=== PATIENT | male | born 1965 | race Caucasian/White ===

== ENCOUNTER → 2019-12-13 | Outpatient (CLI) | payer BC, OTHER ==
--- NOTE | 2019-12-13 22:55 | MR ---
EXAMINATION TYPE: MR cervical spine wo con DATE OF EXAM: 12/13/2019 COMPARISON: 02/09/2012 HISTORY: Neck pain into [place] upper extremities TECHNIQUE: Multiplanar, multisequence images of the cervical spine were acquired. C2-C3: Facet arthropathy and posterior spondylosis. No Canal stenosis. Mild left foraminal encroachme nt due to hypertrophic changes. Mild bilateral uncovertebral joint hypertrophy. C3-C4: Degenerative disc disease and bilateral uncovertebral joint hypertrophy greater on the right w ith mild right foraminal encroachment. No disc herniation or canal stenosis. Minimal central disc bul ging. C4-C5: Degenerative disc disease with facet arthropathy and uncovertebral joint hypertrophy. Mild rig ht-sided foraminal encroachment no canal stenosis or focal herniation. C5-C6: Severe degenerative disc disease. Broad-based central disc herniation with facet arthropathy a nd uncovertebral joint hypertrophy encroaches upon the anterior margin the spinal cord. This is mildl y progressed from the prior exam. There is significant bilateral foraminal encroachment and canal sapphire nosis C6-C7: Facet arthropathy. No foraminal encroachment, canal stenosis or disc herniation. C7-T1: No evidence for degenerative disc disease. No disc bulge/herniation or protrusion. No Canal stenosis. Foramina are patent bilaterally. Cervical segments are intact. There is normal alignment. Cervical spinal cord is of normal signal. Craniovertebral junction relationships are within normal limits. Posterior to the cerebellum on the T2 sagittal view there is a 3 mm fluid-filled signal which is indeterminate by cervical spine MRI. O nly partially included on the exam. However, is retrospectively stable relative to the prior exam 201 2 and therefore likely benign. IMPRESSION: 1. There is mild progression of a disc herniation C5-C6 relative to the prior exam. Broad based disc herniation encroaches upon the anterior margin of the spinal cord. Hypertrophic changes of the facets and uncovertebral joint contribute to significant bilateral foraminal encroachment and canal stenosi s.
== END | disposition home or self-care (01) ==
LOC: RADMRIMAIN 08:22
PROVIDERS: ATTEND Internal Medicine
DX: M48.02 Spinal stenosis, cervical region (principal); M50.222 Other cervical disc displacement at C5-C6 level
CPT/HCPCS: 72141

== ENCOUNTER 2023-05-10 15:36 | Inpatient (IN) | payer BC, MEDICAID, OTHER ==
--- NOTE | 2023-05-10 16:00 | ED ---
General Adult HPI - General Source: patient, EMS, RN notes reviewed, old records reviewed Mode of arrival: EMS Limitations: no limitations <[place] - Last Filed: 05/10/23 22:57> <Al Noriega - Last Filed: 05/11/23 03:32> - General Chief complaint: Psychiatric Symptoms Stated complaint: Mental Health, Alcohol Time Seen by Provider: 05/10/23 15:39 - History of Present Illness Initial comments: 57-year-old male presents for psychiatric evaluation and alcohol intoxication. Patient is not compliant with history physical exam. Patient had been found by police with a gun in his hand, stating that he wanted to commit suicide. He had a breath alcohol of 260. He was petitioned by local police. ([place]) - Related Data Home Medications Medication Instructions Recorded Confirmed No Known Home Medications 05/10/23 05/10/23 Allergies Allergy/AdvReac Type Severity Reaction Status Date / Time No Known Allergies Allergy Verified 05/10/23 17:10 Review of Systems ROS Other: All systems not noted in ROS Statement are negative. <[place] - Last Filed: 05/10/23 22:57> ROS Other: All systems not noted in ROS Statement are negative. <Al Noriega - Last Filed: 05/11/23 03:32> ROS Statement: Those systems with pertinent positive or pertinent negative responses have been documented in the HPI. Past Medical History Past Medical History: Hypertension History of Any Multi-Drug Resistant Organisms: None Reported Past Surgical History: No Surgical Hx Reported Past Psychological History: Anxiety Smoking Status: Current every day smoker Past Alcohol Use History: Daily, Heavy Past Drug Use History: Marijuana <[place] - Last Filed: 05/10/23 22:57> General Exam Limitations: no limitations General appearance: alert, appears intoxicated Head exam: Present: atraumatic, normocephalic Eye exam: Present: normal appearance, PERRL ENT exam: Present: mucous membranes dry Neck exam: Present: normal inspection. Absent: tenderness Respiratory exam: Absent: respiratory distress, wheezes Cardiovascular Exam: Present: normal rhythm, tachycardia GI/Abdominal exam: Absent: distended Extremities exam: Present: normal inspection, normal capillary refill Neurological exam: Present: alert. Absent: motor sensory deficit Psychiatric exam: Present: agitated, anxious, suicidal ideation Skin exam: Present: warm, dry, intact <[place] - Last Filed: 05/10/23 22:57> Course <[place] - Last Filed: 05/10/23 22:57> Vital Signs 05/10/23 05/10/23 15:39 19:00 Temperature 97.8 F Pulse Rate 130 H 94 Respiratory 20 18 Rate Blood Pressure 160/96 112/78 O2 Sat by Pulse 95 94 L Oximetry - Reevaluation(s) Reevaluation #1: 05/10/23 23[address] patient [address] out Dr. Noriega awaiting sobriety and EPS evaluation ([place]) Procedures - Restraint - Face to Face Restraint Occurrence 1 Patient's Immediate Situation: Endangers self safety, Endangers others' safety, Endangers staff safety Patient's Reaction to the Intervention: Uncooperative, Angry, Hostile, Belligerent Patient's Medical & Behavioral Condition: Alert, Agitated Need to Continue or Terminate Restraint or Seclusion: Continue Face to Face Eval of Restraint Date: 05/10/23 Face to Face Eval of Restraint Time: 16:02 <[place] - Last Filed: 05/10/23 22:57> Medical Decision Making <[place] - Last Filed: 05/10/23 22:57> <Al Noriega - Last Filed: 05/11/23 03:32> - Medical Decision Making Was pt. sent in by a medical professional or institution (, PA, RETORT UNLOADER, urgent care, hospital, or halfway...) When possible be specific @ -[No] Did you speak to anyone other than the patient for history (EMS, parent, family, police, friend...)? What history was obtained from this source @ -[No] Did you review nursing and triage notes (agree or disagree)? Why? @ -[I reviewed and agree with nursing and triage notes] Were old charts reviewed (outside hosp., previous admission, EMS record, old EKG, old radiological studies, urgent care reports/EKG's, halfway records)? Report findings @ -[No old charts were reviewed] Differential Diagnosis (chest pain, altered mental status, abdominal pain women, abdominal pain men, vaginal bleeding, weakness, fever, dyspnea, syncope, headache, dizziness, GI bleed, back pain, seizure, CVA, palpatations, mental health, musculoskeletal)? @ -[Differential Mental Health Depression, anxiety, bipolar, psychosis, schizophrenia, borderline personality, situational depression, adjustment disorder, behavioral disorder, brain tumor, malingering, substance abuse, encephalopathy, medication reaction, dementia, hypothyroidism, degenerative neurologic disorder, lupus.... This is not meant to be all-inclusive list EKG interpreted by me (3pts min.). @ -[As above] X-rays interpreted by me (1pt min.). @ -[None done] CT interpreted by me (1pt min.). @ -[None done] U/S interpreted by me (1pt. min.). @ -[None done] What testing was considered but not performed or refused? (CT, X-rays, U/S, labs)? Why? @ -[None] What meds were considered but not given or refused? Why? @ -[None] Did you discuss the management of the patient with other professionals (professionals i.e. , PA, RETORT UNLOADER, lab, RT, psych nurse, secondary social studies teacher, piece dyer, t eacher, flight communications officer, vocational case manager)? Give summary @ -[No] Was smoking cessation discussed for >3mins.? @ -[No] Was critical care preformed (if so, how long)? @ -[No] Were there social determinants of health that impacted care today? How? (Homelessness, low income, unemployed, alcoholism, drug addiction, transportation, low edu. Level, literacy, decrease access to med. care, retirement, rehab)? @ -[No] Was there de-escalation of care discussed even if they declined (Discuss DNR or withdrawal of care, Hospice)? DNR status @ -[No] What co-morbidities impacted this encounter? (DM, HTN, Smoking, COPD, CAD, Cance r, CVA, ARF, Chemo, Hep., AIDS, mental health diagnosis, sleep apnea, morbid obesity)? @ -[None] Was patient admitted / discharged? Hospital course, mention meds given and route, prescriptions, significant lab abnormalities, going to OR and other pertinent info. @ patient care signed out Dr. Noriega awaiting sobriety and EPS evaluation] ([place]) The patient was signed out to me from Dr. Park pending sobriety for EPS evaluation. The patient remained stable and was clinically sober and EPS evaluated the patient the bedside. EPS did recommend inpatient psychiatric admission for further workup and treatment. The patient was placed on a CIWA scale. A COVID-19 swab was also obtained at this time. I did complete a clinical certificate for the patient and the patient was admitted to the inpatient psychiatric unit in stable condition. (Al Noriega) - Lab Data Lab Results 05/10/23 Range/Units 16:54 Urine Opiates Screen Not Detected (NotDetected) Ur Oxycodone Screen Not Detected (NotDetected) Urine Methadone Screen Not Detected (NotDetected) Ur Propoxyphene Screen Not Detected (NotDetected) Ur Barbiturates Screen Not Detected (NotDetected) U Tricyclic Antidepress Not Detected (NotDetected) Ur Phencyclidine Scrn Not Detected (NotDetected) Ur Amphetamines Screen Not Detected (NotDetected) U Methamphetamines Scrn Not Detected (NotDetected) U Benzodiazepines Scrn Not Detected (NotDetected) Urine Cocaine Screen Not Detected (NotDetected) U Marijuana (THC) Screen Detected H (NotDetected) Disposition <[place] - Last Filed: 05/10/23 22:57> Is patient prescribed a controlled substance at d/c from ED?: No Time of Disposition: 03:00 Decision to Admit Reason: Admit from EC Decision Date: 05/11/23 Decision Time: 03:00 <Al Noriega - Last Filed: 05/11/23 03:32> Clinical Impression: Suicidal ideation Disposition: ADMITTED IP TO THIS [facility] Condition: Stable Referrals: None,Stated [Primary Care Provider] - 1-2 days
[2023-05-10 17:16] LABS: Amphetamine Screen,Urine Not Detected (NotDetected); Barbiturate Screen,Urine Not Detected (NotDetected); Benzodiazepines Screen,Urine Not Detected (NotDetected); Cocaine Screen,Urine Not Detected (NotDetected); Methadone Screen, Urine Not Detected (NotDetected); Opiate Screen,Urine Not Detected (NotDetected); Oxycodone Screen, Urine Not Detected (NotDetected); Phencyclidine Screen,Urine Not Detected (NotDetected); Tricyclic Antidepressant,Urine Not Detected (NotDetected); Urn Cannabinoid Scrn Detected (NotDetected)
[2023-05-10] MEDS ORDERED: LORazepam 2 MG/ML INJ IM STA (17:30)
[2023-05-11] MEDS ORDERED: NICOTINE 21MG/24HR PATCH TRANSDERM STA (00:38)
[2023-05-11] MEDS ORDERED: THIAMINE 100 MG/ML 2 ML VIAL IM STA (03:30)
[2023-05-11] MEDS ORDERED: LORazepam 2 MG/ML INJ IV PRN ×3 (03:30)
[2023-05-11] MEDS ORDERED: ACETAMINOPHEN TAB 325 MG TAB PO PRN (05:00)
[2023-05-11] MEDS ORDERED: MAG HYDROX/AL HYDROX/SIMETH 30 ML CUP PO PRN (05:00)
[2023-05-11] MEDS ORDERED: LORazepam 1 MG TAB PO PRN ×2 (05:00)
[2023-05-11] MEDS ORDERED: MAGNESIUM HYDROXIDE 2,400 MG/10 ML CUP PO PRN (05:00)
[2023-05-11] MEDS ORDERED: hydrOXYzine HCL 25 MG TAB PO PRN (05:00)
[2023-05-11] MEDS ORDERED: OLANZapine 5 MG TAB PO PRN (05:00)
[2023-05-11] MEDS ORDERED: OLANZapine 10 MG VIAL IM PRN (05:00)
[2023-05-11] MEDS ORDERED: hydrOXYzine HCL 50 MG/ML 1 ML VIAL IM PRN (05:00)
[2023-05-11 05:20] LABS: Appearance,Urine Clear (Clear); Bilirubin,Urine Negative (Negative); Blood,Urine Negative (Negative); Color,Urine Light Yellow; Glucose,Urine (UA) Negative (Negative); Ketones,Urine Negative (Negative); Leukocyte Esterase,Urine Negative (Negative); Nitrite,Urine Negative (Negative); PH, Urine 5.5 (5.0-8.0); Protein,Urine Negative (Negative); Specific Gravity,Urine 1.006 (1.001-1.035); Urobilinogen,Urine <2.0 mg/dL (<2.0)
[2023-05-11 06:52] LABS: Basophils % (A) 0 %; Eosinophils # (A) 0.1 k/uL (0-0.7); Eosinophils % (A) 1 %; HCT 54.7 % (39.0-53.0); Lymphocytes # (A) 3.8 k/uL (1.0-4.8); Lymphocytes % (A) 43 %; MCH 29.9 pg (25.0-35.0); MCV 90.8 fL (80.0-100.0); Mean Platelet Volume 7.9; Monocytes # (A) 0.7 k/uL (0-1.0); Monocytes % (A) 8 %; Neutrophils # (A) 3.9 k/uL (1.3-7.7); Neutrophils % (A) 45 %; Platelet Count 277 k/uL (150-450); RBC 6.02 m/uL (4.30-5.90); WBC 8.8 k/uL (3.8-10.6)
[2023-05-11 07:02] LABS: ALT 30 U/L (4-49); AST 35 U/L (17-59); African American GFR (CKD) >90 (>60 ml/min/1.73 sqM); Albumin 4.5 g/dL (3.5-5.0); Alkaline Phosphatase 72 U/L (38-126); Anion Gap 10 mmol/L; Bilirubin, Delta 0.2 mg/dL (0.0-0.2); Bilirubin,Unconjugated 0.2 mg/dL (0.0-1.1); Blood Urea Nitrogen 18 mg/dL (9-20); Calcium 9.3 mg/dL (8.4-10.2); Carbon Dioxide 26 mmol/L (22-30); Chloride 105 mmol/L (98-107); Glucose 96 mg/dL (74-99); Non-African American GFR(CKD) 83 (>60 ml/min/1.73 sqM); Potassium 4.6 mmol/L (3.5-5.1); Sodium 141 mmol/L (137-145); Total Bilirubin 0.4 mg/dL (0.2-1.3); Total Protein 7.6 g/dL (6.3-8.2)
[2023-05-11] MEDS ORDERED: THIAMINE 100 MG TAB PO SCH (09:00)
[2023-05-11] MEDS ORDERED: chlordiazePOXIDE 25 MG CAP PO SCH (09:00)
[2023-05-11] MEDS: NICOTINE 14MG/24HR PATCH TRANSDERM SCH (09:13)
[2023-05-11] MEDS: MULTIVITAMINS, THERA 1 EACH TAB PO SCH (09:13)
[2023-05-11] MEDS: FOLIC ACID 1 MG TAB PO SCH (09:13)
--- NOTE | 2023-05-11 09:32 | P.MDCNMH ---
History of Present Illness H&P Date: 05/11/23 Chief Complaint: medical management 57-year-old man with medical history of alcohol abuse, hypertension presented for mental health evaluation. Patient has no complaints at this time. His blood pressure was slightly high in the emergency room. He does not take any medications at home. He denies fevers, chills, nausea, vomiting, chest pain, palpitations, syncope, presyncope, cough, dyspnea, abdominal pain, constipation, diarrhea, dysuria, dyschezia, numbness/weakness of extremities. Pulmonary evaluation, patient was afebrile, hemodynamically stable. CBC demonstrated a polycythemia at 18. Basic metabolic panel and liver function tests were unremarkable. TSH was 2.76. UA was negative. Urine tox was positive for marijuana. Covid was negative. No imaging to review. All Systems reviewed and pertinent positives and negatives noted in HPI, all other symptoms are negative Gen: in no apparent distress, resting comfortably in bed Eyes: PERRL, no scleral injection or icterus HENT: normocephalic, atraumatic, good hearing acuity, moist mucous membranes Neck: no tracheal deviation, full range of motion Resp: good air exchange, breathing comfortably with no accessory muscle use, no tactile fremitus CVS: good distal perfusion x 4, no pitting edema GI: soft, NTTP, ND, no hepatosplenomegaly : no suprapubic tenderness, no CVAT, raines catheter not present MSK: no clubbing, no cyanosis, no noted contractures of extremities Skin: no noted rashes, petechiae; temperature of skin is appropriate Neuro: moving all extremities without signs of weakness, CN II-XII intact Psych: cooperative, euthymic mood, insight and judgment intact Assessment: Hypertension Marijuana abuse Nicotine dependence Plan: Vital signs reviewed and noted in the HPI Lab work reviewed and noted in the HPI Start 5 mg daily of amlodipine Recommend marijuana cessation Patient is full code Past Medical History Past Medical History: Hypertension History of Any Multi-Drug Resistant Organisms: None Reported Past Surgical History: No Surgical Hx Reported Past Anesthesia/Blood Transfusion Reactions: No Reported Reaction Past Psychological History: Anxiety Smoking Status: Current every day smoker Past Alcohol Use History: Daily, Heavy Past Drug Use History: Marijuana - Past Family History Father Family Medical History: No Reported History Medications and Allergies Home Medications Medication Instructions Recorded Confirmed Type No Known Home Medications 05/10/23 05/11/23 History Allergies Allergy/AdvReac Type Severity Reaction Status Date / Time No Known Allergies Allergy Verified 05/11/23 05:10 Physical Exam Osteopathic Statement: *. No significant issues noted on an osteopathic structural exam other than those noted in the History and Physical/Consult. Vitals: Vital Signs Temp Pulse Pulse Resp BP BP Pulse Ox 05/11/23 06:12 97.8 F 118 H 18 148/102 96 05/11/23 05:30 88 16 110/68 95 05/10/23 19:00 97.8 F 94 18 112/78 94 L 05/10/23 15:39 130 H 20 160/96 95 Intake and Output 05/10/23 05/11/23 05/11/23 22:59 06:59 14:59 Other: Weight 81.647 kg 76.714 kg Cranial Nerve Examination - Cranial Nerves Cranial Nerve II- Optic: Intact Cranial Nerve III- Oculomotor: Intact Cranial Nerve IV- Trochlear: Intact Cranial Nerve V- Trigeminal: Intact Cranial Nerve - Abducens: Intact Cranial Nerve VII- Facial: Intact Cranial Nerve VIII- Auditory: Intact Cranial Nerve IX- Glossopharyngeal: Intact Cranial Nerve X- Vagus: Intact Cranial Nerve XI- Accessory: Intact Cranial Nerve XII- Hypoglossal: Intact Results CBC & Chem 7: 05/11/23 06:19 05/11/23 06:19 Labs: Abnormal Lab Results - Last 24 Hours (Table) 05/10/23 05/11/23 Range/Units 16:54 06:19 RBC 6.02 H (4.30-5.90) m/uL Hgb 18.0 H (13.0-17.5) gm/dL Hct 54.7 H (39.0-53.0) % U Marijuana (THC) Screen Detected H (NotDetected)
[2023-05-11] MEDS ORDERED: NALTREXONE HCL 50 MG TAB PO STA (11:10)
--- NOTE | 2023-05-11 13:23 | P.HP ---
Psychiatric H&P - . H&P Date: 05/11/23 History & Physical: Allergies Allergy/AdvReac Type Severity Reaction Status Date / Time No Known Allergies Allergy Verified 05/11/23 05:10 Vital Signs Temp 97.8 F 05/11/23 06:12 Pulse 118 H 05/11/23 06:12 Resp 18 05/11/23 06:12 BP 148/102 05/11/23 06:12 Pulse Ox 96 05/11/23 06:12 FiO2 Intake & Output 05/10/23 05/11/23 05/11/23 18:59 06:59 18:59 Weight 81.647 kg 76.714 kg Laboratory Last Values WBC 8.8 k/uL (3.8-10.6) 05/11/23 06:19 RBC 6.02 m/uL (4.30-5.90) H 05/11/23 06:19 Hgb 18.0 gm/dL (13.0-17.5) H 05/11/23 06:19 Hct 54.7 % (39.0-53.0) H 05/11/23 06:19 MCV 90.8 fL (80.0-100.0) 05/11/23 06:19 MCH 29.9 pg (25.0-35.0) 05/11/23 06:19 MCHC 33.0 g/dL (31.0-37.0) 05/11/23 06:19 RDW 14.0 % (11.5-15.5) 05/11/23 06:19 Plt Count 277 k/uL (150-450) 05/11/23 06:19 MPV 7.9 05/11/23 06:19 Neutrophils % 45 % 05/11/23 06:19 Lymphocytes % 43 % 05/11/23 06:19 Monocytes % 8 % 05/11/23 06:19 Eosinophils % 1 % 05/11/23 06:19 Basophils % 0 % 05/11/23 06:19 Neutrophils # 3.9 k/uL (1.3-7.7) 05/11/23 06:19 Lymphocytes # 3.8 k/uL (1.0-4.8) 05/11/23 06:19 Monocytes # 0.7 k/uL (0-1.0) 05/11/23 06:19 Eosinophils # 0.1 k/uL (0-0.7) 05/11/23 06:19 Basophils # 0.0 k/uL (0-0.2) 05/11/23 06:19 Sodium 141 mmol/L (137-145) 05/11/23 06:19 Potassium 4.6 mmol/L (3.5-5.1) 05/11/23 06:19 Chloride 105 mmol/L (98-107) 05/11/23 06:19 Carbon Dioxide 26 mmol/L (22-30) 05/11/23 06:19 Anion Gap 10 mmol/L 05/11/23 06:19 BUN 18 mg/dL (9-20) 05/11/23 06:19 Creatinine 1.02 mg/dL (0.66-1.25) 05/11/23 06:19 Est GFR (CKD-EPI)AfAm >90 (>60 ml/min/1.73 sqM) 05/11/23 06:19 Est GFR (CKD-EPI)NonAf 83 (>60 ml/min/1.73 sqM) 05/11/23 06:19 Glucose 96 mg/dL (74-99) 05/11/23 06:19 Calcium 9.3 mg/dL (8.4-10.2) 05/11/23 06:19 Total Bilirubin 0.4 mg/dL (0.2-1.3) 05/11/23 06:19 Conjugated Bilirubin 0.0 mg/dL (0.0-0.3) 05/11/23 06:19 Unconjugated Bilirubin 0.2 mg/dL (0.0-1.1) 05/11/23 06:19 Delta Bilirubin 0.2 mg/dL (0.0-0.2) 05/11/23 06:19 AST 35 U/L (17-59) 05/11/23 06:19 ALT 30 U/L (4-49) 05/11/23 06:19 Alkaline Phosphatase 72 U/L (38-126) 05/11/23 06:19 Total Protein 7.6 g/dL (6.3-8.2) 05/11/23 06:19 Albumin 4.5 g/dL (3.5-5.0) 05/11/23 06:19 TSH 2.760 mIU/L (0.465-4.680) 05/11/23 06:19 Urine Color Light Yellow 05/10/23 16:54 Urine Appearance Clear (Clear) 05/10/23 16:54 Urine pH 5.5 (5.0-8.0) 05/10/23 16:54 Ur Specific [place] 1.006 (1.001-1.035) 05/10/23 16:54 Urine Protein Negative (Negative) 05/10/23 16:54 Urine Glucose (UA) Negative (Negative) 05/10/23 16:54 Urine Ketones Negative (Negative) 05/10/23 16:54 Urine Blood Negative (Negative) 05/10/23 16:54 Urine Nitrite Negative (Negative) 05/10/23 16:54 Urine Bilirubin Negative (Negative) 05/10/23 16:54 Urine Urobilinogen <2.0 mg/dL (<2.0) 05/10/23 16:54 Ur Leukocyte Esterase Negative (Negative) 05/10/23 16:54 Urine Opiates Screen Not Detected (NotDetected) 05/10/23 16:54 Ur Oxycodone Screen Not Detected (NotDetected) 05/10/23 16:54 Urine Methadone Screen Not Detected (NotDetected) 05/10/23 16:54 Ur Propoxyphene Screen Not Detected (NotDetected) 05/10/23 16:54 Ur Barbiturates Screen Not Detected (NotDetected) 05/10/23 16:54 U Tricyclic Antidepress Not Detected (NotDetected) 05/10/23 16:54 Ur Phencyclidine Scrn Not Detected (NotDetected) 05/10/23 16:54 Ur Amphetamines Screen Not Detected (NotDetected) 05/10/23 16:54 U Methamphetamines Scrn Not Detected (NotDetected) 05/10/23 16:54 U Benzodiazepines Scrn Not Detected (NotDetected) 05/10/23 16:54 Urine Cocaine Screen Not Detected (NotDetected) 05/10/23 16:54 U Marijuana (THC) Screen Detected (NotDetected) H 05/10/23 16:54 Coronavirus (PCR) Not Detected (Not Detectd) 05/11/23 04:12 05/11/23 13:22 IDENTIFYING DATA: Patient is a , unemployed, 57-year-old male with no significant psychiatric history of presented to our hospital under petition and certification after attempting to shoot himself with a shotgun. HPI: Patient presented to the hospital on 05/11/2023, brought into the emergency department by EMS after being petition by his girlfriend. After petition "the patient had a gun and was threatening to commit suicide." The patient does ad burt that he has been experiencing suicidal ideation and does report that it was a shotgun. The patient was subsequently admitted onto our psychiatric unit. The patient reports that he has been feeling increasingly depressed for the past 5 years. He reports that he has been very frustrated with how his life has been turning out. He states that he "can't find a job, have no transportation, and I am broke." He reports significant symptoms of depression including decreased motivation, low energy, decreased appetite, intermittent sleep, anhedonia, and suicidal ideation. He does report that he has previously attempted suicide by overdose when he was 22 years old. He is not endorsing any significant symptoms of bipolar disorder. He reports no increased goal-directed activity, grandiosity, or mood lability. He denies any periods of excessive energy. The patient does not report any auditory or visual hallucinations. He denies any paranoia or other delusions. PAST PSYCHIATRIC HISTORY: Patient reports no prior psychiatric history. Patient denies being on any psychiatric medications. Patient denies any previous psychiatric hospitalizations. Patient denies any psychiatric outpatient follow- up. Report a prior attempt at suicide by overdose when he was 22 years old. PMH: Past Medical History: Hypertension History of Any Multi-Drug Resistant Organisms: None Reported Past Surgical History: No Surgical Hx Reported Past Anesthesia/Blood Transfusion Reactions: No Reported Reaction Past Psychological History: Anxiety Smoking Status: Current every day smoker Past Alcohol Use History: Daily, Heavy Past Drug Use History: Marijuana ALLERGIES: NO KNOWN DRUG ALLERGIES CHEMICAL DEPENDENCY HISTORY: The patient reports he smokes one pack per day. He states that he has been drinking approximately a pint of liquor per day for the past few years. He does admit to history of tremors however denies any history of seizures, delirium tremens, rehab, or detoxification. He also reports daily marijuana use. He denies any illicit drug use however reports that he has experimented with illicit substances in the distant past. FAMILY PSYCHIATRIC/SUBSTANCE USE HISTORY: No reported family psychiatric history. SOCIAL HISTORY: Patient was born and raised in [place], [place]. He was in 2016 after being for 12 years. He has no children. He cu rrently lives with his girlfriend Chaya whom he has been with for 1 year and his aunt. He attended some college. 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 He does have a history of DUI in the past. He denies any service. He reports no protestant affiliation. MENTAL STATUS EXAM: General Appearance: Patient appears to be stated age is alert, directable, and attempts to cooperate. Patient appears to have fair hygiene and grooming. Behavior: Patient is seated without any agitated behavior. Psychomotor slowing is evident. Eye contact is intermittent. Speech: Patient's speech is fluent and nonpressured. Monotone and minimal. Soft-spoken. Mood/Affect: Patient reports their mood is depressed, affect is congruent and melancholic. Blunted. Suicidality/Homicidality: Patient denies any homicidal ideation. Patient does endorse suicidal ideation. Perceptions: Patient denies any visual hallucinations and denies any auditory hallucinations Though content/process: Dysphoric thought process. Excessive guilt. Memory and concentration: AOX3, grossly intact for the purposes of this session. Can spell "WORLD" backwards Judgment and insight: poor STRENGTHS/WEAKNESSES: strength is that patient is resilient. Weakness is that patient engages in heavy alcohol use. Has prior attempts at suicide and access to firearms. INTELLECT: average IMPRESSIONS: Major depressive disorder, recurrent, severe Alcohol use disorder Cannabis use disorder Nicotine dependence PLAN: -Patient is admitted under involuntary status but converted to voluntary to the MHU for stabilization of psychiatric symptoms and safety. Patient signed adult voluntary form and medication consent and is placed in patient's chart. -Medications : Will start patient on Librium 25 mg by mouth 3 times a day for alcohol withdrawal ReVia 50 mg by mouth daily for alcohol cessation Remeron 15 mg by mouth at bedtime for depression -Ativan and Zyprexa PRN for agitation/aggression -Started thiamine, MVM for etoh use -CIWA protocol with Ativan PRN for ETOH withdrawal -Patient was counselled on substance abuse and desired to cut back on use -Patient was informed of the risks, benefits and side effects of the medication and patient verbally consented to taking the medications. Patient signed med consent form and was placed in chart. -Internal Medicine consult to perform medical evaluation and physical. -NRT - nicotine patch -SW on board for discharge planning. Encourage patient to participate in groups to work on coping skills. 05/11/23 13:22
[2023-05-11 15:40] LABS: Chol/HDL Ratio 3.79 Ratio
[2023-05-11] MEDS: chlordiazePOXIDE 25 MG CAP PO SCH ×2 (16:14→21:21)
[2023-05-11] MEDS: MIRTAZAPINE 15 MG TAB PO SCH (21:21)
[2023-05-12] MEDS: NALTREXONE HCL 50 MG TAB PO SCH (09:33)
[2023-05-12] MEDS: MULTIVITAMINS, THERA 1 EACH TAB PO SCH (09:33)
[2023-05-12] MEDS: THIAMINE 100 MG TAB PO SCH (09:33)
[2023-05-12] MEDS: FOLIC ACID 1 MG TAB PO SCH (09:33)
[2023-05-12] MEDS: NICOTINE 14MG/24HR PATCH TRANSDERM SCH (09:33)
[2023-05-12] MEDS: amLODIPine 5 MG TAB PO SCH (09:34)
[2023-05-12] MEDS: chlordiazePOXIDE 25 MG CAP PO SCH ×2 (09:50→21:12)
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
[2023-05-12] MEDS: MIRTAZAPINE 15 MG TAB PO SCH (21:11)
[2023-05-13] MEDS: chlordiazePOXIDE 25 MG CAP PO SCH (07:58)
[2023-05-13] MEDS: MULTIVITAMINS, THERA 1 EACH TAB PO SCH (07:58)
[2023-05-13] MEDS: THIAMINE 100 MG TAB PO SCH (07:58)
[2023-05-13] MEDS: FOLIC ACID 1 MG TAB PO SCH (07:58)
[2023-05-13] MEDS: NICOTINE 14MG/24HR PATCH TRANSDERM SCH (07:58)
[2023-05-13] MEDS: amLODIPine 5 MG TAB PO SCH (07:58)
[2023-05-13] MEDS: NALTREXONE HCL 50 MG TAB PO SCH (07:58)
--- NOTE | 2023-05-13 10:52 | P.PN ---
Progress Note - Text Progress Note Date: 05/13/23 Interval History: Patient was seen wandering the hallways and was directable and agreeable to speak with flex o writer operator in the office. Currently, the patient reports he feels anxious. He reports that he feels like he is upset stomach. He however is not endorsing any suicidal or homicidal ideation, intention, and/or plan. He reports no auditory or visual hallucinations. He denies any paranoia or other delusions. He has been adherent with his medication is not reporting any s ignificant side effects. He reports that his sleep was intermittent as he was experiencing anxiety at bedtime. He denies any medical issues or concerns and reports no chest pain, shortness of breath, palpitations, or issues using the restroom. He does report that he is slightly groggy and understands that he is being tapered off his Librium. Mental Status Exam: General Appearance: Patient appears to be stated age is alert, directable, and cooperative. Behavior: Patient is calmly seated without any agitated behavior. Speech: Patient's speech is fluent and nonpressured. Mood/Affect: Mood is "anxious," affect is congruent and constricted. Suicidality/Homicidality: Patient denies any suicidal or homicidal ideation, intention, and/or plan. Perceptions: Patient denies any visual hallucinations and denies any auditory hallucinations Though content/process: There is no evidence of any delusional thought content and thought process is linear and goal-directed. Memory and concentration: AOX3, grossly intact for the purposes of this session Judgment and insight: Improving mildly Vital Signs Temp 97.2 F L 05/13/23 06:00 Pulse 70 05/13/23 06:00 Resp 16 05/13/23 06:00 BP 132/84 05/13/23 06:00 Pulse Ox 98 05/13/23 06:00 FiO2 Assessment Major depressive disorder, recurrent, severe Alcohol use disorder Cannabis use disorder Nicotine dependence Plan: -Patient continues to meet criteria for inpatient psychiatric admission for symptom stabilization and safety. Patient has signed adult voluntary form and medication consent and was placed in patient's chart. -Medications: Decrease Librium to 25 mg at bedtime for alcohol withdrawal ReVia 50 mg by mouth daily for alcohol cessation Increase Remeron to 30 mg by mouth at bedtime for depression -When necessary Ativan and Zyprexa for agitation/aggression. -NRT - nicotine patch -SW on board for discharge planning. Encouraged the patient to participate in milieu.
[2023-05-13] MEDS ORDERED: MAGNESIUM HYDROXIDE 2,400 MG/30 ML CUP PO PRN (15:47)
[2023-05-13] MEDS: MIRTAZAPINE 15 MG TAB PO SCH (20:38)
[2023-05-13] MEDS ORDERED: chlordiazePOXIDE 25 MG CAP PO STA (21:21)
[2023-05-14] MEDS: NICOTINE 14MG/24HR PATCH TRANSDERM SCH (10:17)
[2023-05-14] MEDS: THIAMINE 100 MG TAB PO SCH (10:18)
[2023-05-14] MEDS: FOLIC ACID 1 MG TAB PO SCH (10:18)
[2023-05-14] MEDS: amLODIPine 5 MG TAB PO SCH (10:18)
[2023-05-14] MEDS: MULTIVITAMINS, THERA 1 EACH TAB PO SCH (10:18)
[2023-05-14] MEDS: NALTREXONE HCL 50 MG TAB PO SCH (10:18)
--- NOTE | 2023-05-14 13:40 | P.PN ---
Progress Note - Text Progress Note Date: 05/14/23 Interval History: Patient was seen wandering the hallways and was directable and agreeable to speak with writer producer in the office. Currently, the patient reports he feels "not bad". He says that he was woken up to receive Librium last night which interrupted his sleep but that he had slept well otherwise. He reports tolerating the medications well. He says he plans to read a book to help calm down his mind. He however is not endorsing any suicidal or homicidal ideation, intention, and/or plan. He reports no auditory or visual hallucinations. He denies any paranoia or other delusions. He has been adherent with his medication is not reporting any significant side effects. He denies any medical issues or concerns and reports no chest pain, shortness of breath, palpitations, or issues using the restroom. Mental Status Exam: General Appearance: Patient appears to be stated age is alert, directable, and cooperative. Behavior: Patient is calmly seated without any agitated behavior. Speech: Patient's speech is fluent and nonpressured. Low volume Mood/Affect: Mood is "not bad," affect is congruent and constricted. Suicidality/Homicidality: Patient denies any suicidal or homicidal ideation, intention, and/or plan. Perceptions: Patient denies any visual hallucinations and denies any auditory hallucinations Though content/process: There is no evidence of any delusional thought content and thought process is linear and goal-directed. Memory and concentration: AOX3, grossly intact for the purposes of this session Judgment and insight: Improving mildly Assessment Major depressive disorder, recurrent, severe Alcohol use disorder, in withdrawal Cannabis use disorder Nicotine dependence Plan: -Patient continues to meet criteria for inpatient psychiatric admission for symptom stabilization and safety. Patient has signed adult voluntary form and medication consent and was placed in patient's chart. -Medications: Decrease Librium to 10 mg at bedtime for alcohol withdrawal for tomorrow night then discontinue ReVia 50 mg by mouth daily for alcohol cessation Remeron to 30 mg by mouth at bedtime for depression - CIWA protocol- scoring low -When necessary Ativan and Zyprexa for agitation/aggression. -NRT - nicotine patch -SW on board for discharge planning. Encouraged the patient to participate in milieu.
[2023-05-14] MEDS ORDERED: chlordiazePOXIDE 25 MG CAP PO SCH (21:00)
[2023-05-14] MEDS: MIRTAZAPINE 15 MG TAB PO SCH (21:16)
[2023-05-15 07:27] VITALS: RESP 16
[2023-05-15] MEDS: amLODIPine 5 MG TAB PO SCH (08:50)
[2023-05-15] MEDS: FOLIC ACID 1 MG TAB PO SCH (08:50)
[2023-05-15] MEDS: MULTIVITAMINS, THERA 1 EACH TAB PO SCH (08:50)
[2023-05-15] MEDS: NICOTINE 14MG/24HR PATCH TRANSDERM SCH (08:50)
[2023-05-15] MEDS: NALTREXONE HCL 50 MG TAB PO SCH (08:50)
[2023-05-15] MEDS: THIAMINE 100 MG TAB PO SCH (08:51)
--- NOTE | 2023-05-15 13:12 | P.PN ---
Progress Note - Text Progress Note Date: 05/15/23 Interval History: Patient was seen wandering the hallways and was directable and agreeable to speak with contract technical writer in the office. Currently, the patient reports he feels "not bad at all". He says that he is feeling significantly better with the past 2 days. He is more future oriented and expresses an interest in continuing sobriety. He admits "alcohol is something I tried. Not going to work for me anymore ". He is noted to be interacting in the milieu. He denies appetite or sleep issues with current medication regimen. He says that his girlfriend is encouraging him to get better and to get home. He is not endorsing any suicidal or homicidal ideation, intention, and/or plan. He reports no auditory or visual hallucinations. He denies any paranoia or other delusions. He has been adherent with his medication is not reporting any significant side effects. Mental Status Exam: General Appearance: Patient appears to be stated age is alert, directable, and cooperative. Good hygiene Behavior: Patient is calmly seated without any agitated behavior. Speech: Patient's speech is fluent and nonpressured. Low volume Mood/Affect: Mood is "not bad at all," affect is congruent and constricted. Suicidality/Homicidality: Patient denies any suicidal or homicidal ideation, intention, and/or plan. Perceptions: Patient denies any visual hallucinations and denies any auditory hallucinations Though content/process: There is no evidence of any delusional thought content and thought process is linear and goal-directed. Memory and concentration: AOX3, grossly intact for the purposes of this session Judgment and insight: Improving Assessment Major depressive disorder, recurrent, severe Alcohol use disorder, in withdrawal Cannabis use disorder Nicotine dependence Plan: -Patient continues to meet criteria for inpatient psychiatric admission for symptom stabilization and safety. Patient has signed adult voluntary form and medication consent and was placed in patient's chart. -Medications: Stop Librium 10 mg qHS after tonight ReVia 50 mg by mouth daily for alcohol cessation Remeron to 30 mg by mouth at bedtime for depression - Discontinue CIWA protocol- scoring low -When necessary Ativan and Zyprexa for agitation/aggression. -NRT - nicotine patch -SW on board for discharge planning. Encouraged the patient to participate in milieu. Guns/firearms must be out of access prior to discharge. Likely discharge early week
[2023-05-15] MEDS: MIRTAZAPINE 15 MG TAB PO SCH (20:57)
[2023-05-16 06:55] VITALS: BP 116/79; PULSE 74; TEMP 97
[2023-05-16] MEDS: THIAMINE 100 MG TAB PO SCH (08:32)
[2023-05-16] MEDS: amLODIPine 5 MG TAB PO SCH (08:32)
[2023-05-16] MEDS: FOLIC ACID 1 MG TAB PO SCH (08:32)
[2023-05-16] MEDS: MULTIVITAMINS, THERA 1 EACH TAB PO SCH (08:32)
[2023-05-16] MEDS: NALTREXONE HCL 50 MG TAB PO SCH (08:32)
[2023-05-16] MEDS: NICOTINE 14MG/24HR PATCH TRANSDERM SCH (08:33)
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
== END 2023-05-16 13:20 | disposition home or self-care (01) | DRG 751 ==
LOC: EC 15:36 → 3MHU 05-11 04:58
PROVIDERS: ADMIT Psychiatry & Neurology Psychiatry; ATTEND Psychiatry & Neurology Psychiatry
PROC: HZ2ZZZZ Detoxification Services for Substance Abuse Treatment (ICD-10-PCS; principal; 2023-05-11)
DX: F33.2 Major depressive disorder, recurrent severe without psychotic features (principal); F17.210 Nicotine dependence, cigarettes, uncomplicated; G47.00 Insomnia, unspecified; I10 Essential (primary) hypertension; F10.229 Alcohol dependence with intoxication, unspecified; R45.851 Suicidal ideations; F12.10 Cannabis abuse, uncomplicated; Z76.5 Malingerer [conscious simulation]; Z79.899 Other long term (current) drug therapy; Z20.822 Contact with and (suspected) exposure to COVID-19; Z71.6 Tobacco abuse counseling; Z71.41 Alcohol abuse counseling and surveillance of alcoholic
CPT/HCPCS: 80053; 80061; 80306; 81003; 82075; 82248; 83036; 83721; 84443; 85025; 87635; 96372; 96374; 99285